=== PATIENT | male | born 1955 | race Caucasian/White ===

== ENCOUNTER 2021-10-14 19:31 | Emergency (ER) | payer MEDICARE ==
[~2021-10-14] VITALS: Ht 177.8 cm; Wt 59.0 kg
== END 2021-10-14 21:15 | disposition home or self-care (01) ==
LOC: ER 19:31
DX: S61.411A Laceration without foreign body of right hand, initial encounter (principal); V86.99XA Unspecified occupant of other special all-terrain or other off-road motor vehicle injured in nontraffic accident, initial encounter
CPT/HCPCS: 73130; J1885